=== PATIENT | male | born 1975 | race Caucasian/White ===

== ENCOUNTER 2017-01-11 19:16 | Emergency (ER) | payer OTHER ==
[2017-01-11 21:36] VITALS: BP 124/87
[2017-01-11 21:36] LABS: Urine Bilirubin Negative (Negative); Urine Glucose Negative (Negative); Urine Nitrite Negative (Negative)
--- NOTE | 2017-01-12 07:32 | RAD ---
INDICATION: Left scrotal discomfort no definite hernia felt. COMPARISON: There are no prior studies available for comparison. TECHNIQUE: Multiple real-time images of the testicles were obtained including color Doppler images and Doppler tracings. FINDINGS: The testicles are normal in size, shape and echogenicity. The right testicle measured 4.7 x 2.0 x 3.1 cm and the left testicle measured 4.8 x 1.9 x 2.9 cm. No intratesticular mass is seen. There is symmetric vascular flow within both testicles. There are small bilateral epididymal cyst measuring 6 x 3 x 4 mm in the right epididymis and 2 cysts measuring 7 x 7 x 7 mm in the left epididymis. No hydrocele is seen. There is no evidence for varicocele. The inguinal area was scanned with and without Valsalva maneuver without evidence for hernia. IMPRESSION: SMALL EPIDIDYMAL CYSTS, OTHERWISE UNREMARKABLE STUDY.
--- NOTE | 2017-01-13 03:13 | ED ---
Rafael Valdes Gabriel, scribed for Kelvin Garcia MD on 01/11/17 at 2059 . Abdominal Pain/Male - HPI Summary HPI Summary: This patient is a 41 year old M presenting to [facility] with a chief complaint of ABD pain since 3 weeks prior. That has been getting worse the past 3 days. The patient rates the pain 4/10 in severity. He states the pain is radiating into his mid and lower back. Symptoms aggravated by movement. Patient reports fatigue , nausea, fogginess, diarrhea, and testicular pain. Patient denies fever, penal discharge, and blood in urine. Patient also denies any new sexual partners. - History of Current Complaint Chief Complaint: EDGeneral Stated Complaint: ABD/GROIN PAIN Time Seen by Provider: 01/11/17 20:54 Hx Obtained From: Patient Onset/Duration: Gradual Onset, Lasting Weeks - 3, Still Present Timing: Constant Pain Intensity: 4 Pain Scale Used: 0-10 Numeric Radiates: Yes Radiates to: Back Aggravating Factor(s): Movement Associated Signs And Symptoms: Positive: Negative - fever, penal discharge, and blood in urine, Other - fatigue, nausea, fogginess, diarrhea, and testicular pain PMH/Surg Hx/FS Hx/Imm Hx Previously Healthy: No Endocrine/Hematology History: Denies: Hx Diabetes Cardiovascular History: Denies: Hx Myocardial Infarction EENT History: Denies: Hx Deafness - Immunization History Date of Tetanus Vaccine: unk Date of Influenza Vaccine: none Infectious Disease History: No Infectious Disease History: Denies: Traveled Outside the [place] in Last 30 Days - Family History Known Family History: Positive: Hypertension, Diabetes - Social History Occupation: Employed Full-time - self employed Alcohol Use: Weekly Hx Substance Use: No Substance Use Type: Reports: None Hx Tobacco Use: No Smoking Status (MU): Former Smoker Review of Systems Constitutional: Other - Foggy Positive: Fatigue. Negative: Fever Positive: Abdominal Pain, Diarrhea, Nausea Genitourinary: Negative - penal discharge Positive: other - testicula rpain . Negative: hematuria All Other Systems Reviewed And Are Negative: Yes Physical Exam - Summary Physical Exam Summary: Skin: warm, dry, reflects adequate perfusion Head/face: normal Eyes: EOMI, ROBINSON ENT: normal, throat is clear Neck: supple, non-tender Respiratory: CTA, breath sounds present Pelvic: Mild inguinal tenderness without hernia, Normal cremaster reflex and normal lie Cardiovascular: RRR, pulses symmetrical, no murmur Abdomen: non-tender, soft, RUQ negative, No enlarged adenopathy Bowel: present Musculoskeletal: normal, strength/ROM intact Neuro: normal, sensory motor intact, A&Ox3 Triage Information Reviewed: Yes Vital Signs On Initial Exam: Initial Vitals Temp Pulse Resp BP Pulse Ox 97.7 F 63 18 161/86 99 01/11/17 19:21 01/11/17 19:21 01/11/17 19:21 01/11/17 19:21 01/11/17 19:21 Vital Signs Reviewed: Yes - Nikhil Coma Scale Coma Scale Total: 15 Diagnostics - Vital Signs Vital Signs Temp Pulse Resp BP Pulse Ox 01/11/17 19:21 97.7 F 63 18 161/86 99 - Laboratory Lab Results: Lab Results 01/11/17 01/11/17 Range/Units 21:20 21:20 Urine Color Yellow Urine Appearance Cloudy Urine pH 7.0 (5-9) Ur Specific [place] 1.021 (1.010-1.030) Urine Protein Negative (Negative) Urine Ketones Negative (Negative) Urine Blood Negative (Negative) Urine Nitrate Negative (Negative) Urine Bilirubin Negative (Negative) Urine Urobilinogen Negative (Negative) Ur Leukocyte Esterase Negative (Negative) Urine Glucose Negative (Negative) C.trachomatis (Amp Det) Negative (Negative) N.gonorrhoeae (Amp Det) Negative (Negative) Lab Statement: Any lab studies that have been ordered have been reviewed, and results considered in the medical decision making process. - Additional Comments Diagnostic Additional Comments: US scrotum, per radiologist, no evidence for acute disease ED physician has reviewed this radiology report and agrees. Abdominal Pain Fem Course/Dx - Course Course Of Treatment: pt with inguinal pain and no palp hernia. Nl US scrotum. Urine neg. No tenderness in abd. Symmetric nodes. Tx symptomatically. - Diagnoses Provider Diagnoses: Left inguinal pain Discharge - Discharge Plan Condition: Good Disposition: HOME Prescriptions: Ciprofloxacin TAB* [Cipro 500 MG TAB*] 500 mg PO BID #14 tab Naproxen TAB* [Naprosyn 250 mg TAB*] 250 mg PO BID PRN #10 tab PRN Reason: Pain Patient Education Materials: Groin Pain (ED) Referrals: Seth Navarro MD [Primary Care Provider] - Additional Instructions: RETURN TO THE EMERGENCY DEPARTMENT FOR CHANGING OR WORSENING SYMPTOMS The documentation as recorded by the Rafael garrett Gabriel accurately reflects the service I personally performed and the decisions made by me, Kelvin Garcia MD.
== END 2017-01-11 23:53 | disposition home or self-care (01) ==
LOC: ED 19:16
DX: R10.30 Lower abdominal pain, unspecified (principal); R10.9 Unspecified abdominal pain; N50.819 Testicular pain, unspecified; R53.83 Other fatigue; Z87.891 Personal history of nicotine dependence
CPT/HCPCS: 76870; 81003; 87491; 87591; 99282

== ENCOUNTER 2017-12-01 19:58 | Emergency (ER) | payer OTHER ==
[2017-12-01] MEDS ORDERED: NS 0.9% 1000 ML* 1,000 ML IV ONE (20:50)
[2017-12-01 21:02] LABS: ABS Basophils 0.1 10^3/ul (0-0.2); ABS Eosinophils 0.3 10^3/ul (0-0.6); ABS Lymphocytes 1.8 10^3/ul (1.0-4.8); ABS Monocytes 0.8 10^3/ul (0-0.8); ABS Neutrophils 3.4 10^3/ul (1.5-7.7); ABS Nucleated RBC 0 10^3/ul; Eosinophil % 4.2 % (0-6); Hematocrit 40 % (42-52); Hemoglobin 13.4 g/dl (14.0-18.0); Lymphocyte % 28.2 % (25-47); Mean Corpuscular HGB Conc 34 g/dl (31-36); Mean Corpuscular Hemoglobin 29 pg (27-31); Mean Corpuscular Volume 87 fL (80-94); Mean Platelet Volume 10.1 um3 (7.4-10.4); Nucleated Red Blood Cells % 0; Platelet Count 204 10^3/ul (150-450); Red Blood Count 4.56 10^6/ul (4.00-5.40); Red Cell Distribution Width 13 % (10.5-15); White Blood Count 6.3 10^3/ul (3.5-10.8)
[2017-12-01 21:18] LABS: EGFR Non-African American 99.8 (>60)
[2017-12-01 21:43] LABS: Urine Appearance Clear; Urine Blood Negative (Negative); Urine Color Straw; Urine Ketones Negative (Negative); Urine Protein Negative (Negative); Urine Specific Gravity 1.009 (1.010-1.030); Urine Urobilinogen Negative (Negative)
--- NOTE | 2017-12-01 21:59 | ED ---
Abdominal Pain/Male - HPI Summary HPI Summary: Patient is a 42 y/o M w/ c/o rash to groin area, burning/pain at LLQ. He states that eight days ago, patient was lifting weights and dropped them by accident. Two days later, patient began to experience a burning sensation at LLQ and also noted bumps and burning at groin area. Patient also notes bumps to LUE and back. He denies chills, fever, nausea, vomiting. Patient reports slight discomfort with urination. Penile discharge, scrotal pain is denied. PMHx, PSHx , home medications are denied. He notes that present Sx are different from previous bouts of poison flakita he has had. On triage, pain is rated 4/10, nothing is noted to aggravate/alleviate Sx. it is noted that patient took Motrin this AM. Home medications and allergies are reviewed. - History of Current Complaint Chief Complaint: EDAbdPain Stated Complaint: BULDGE IN GROIN AREA Time Seen by Provider: 12/01/17 20:20 Hx Obtained From: Patient Onset/Duration: Lasting Days - onsetting four days ago, Still Present Timing: Constant, Lasting Days - onset four days ago Severity Currently: Moderate - 4/10 Pain Intensity: 4 Pain Scale Used: 0-10 Numeric - 4/10 Location: Discrete At: LLQ, Groin Character: Burning Aggravating Factor(s): Nothing Alleviating Factor(s): Nothing Associated Signs And Symptoms: Positive: Urinary Symptoms - slight discomfort with urination, Other - groin burning, bumps at LUE and back, denies chills. Negative: Fever, Nausea, Vomiting - Allergies/Home Medications Allergies/Adverse Reactions: Allergies Allergy/AdvReac Type Severity Reaction Status Date / Time No Known Allergies Allergy Verified 02/21/17 09:35 PMH/Surg Hx/FS Hx/Imm Hx Endocrine/Hematology History: Denies: Hx Diabetes Cardiovascular History: Denies: Hx Myocardial Infarction History: Denies: Hx Renal Disease Sensory History: Denies: Hx Deafness - Surgical History Surgery Procedure, Year, and Place: none - Immunization History Date of Tetanus Vaccine: unk Date of Influenza Vaccine: none Infectious Disease History: No Infectious Disease History: Denies: Traveled Outside the [place] in Last 30 Days - Family History Known Family History: Positive: Hypertension, Diabetes - Social History Alcohol Use: Weekly Hx Substance Use: No Substance Use Type: Reports: None Hx Tobacco Use: No Smoking Status (MU): Former Smoker Review of Systems Negative: Fever, Chills Positive: Abdominal Pain - LLQ. Negative: Vomiting, Nausea Positive: dysuria - discomfort with urination . Negative: discharge, pain - scrotal Positive: Other - burning at LLQ and groin, bumps at LUE and back All Other Systems Reviewed And Are Negative: Yes Physical Exam - Summary Physical Exam Summary: GENERAL: Patient is a well-developed and nourished male who is lying comfortable in the stretcher. Patient is not in any acute respiratory distress. HEAD AND FACE: Normocephalic EYES: PERRLA, EOMI x 2. EARS: Hearing grossly intact. MOUTH: Oropharynx within normal limits. NECK: Supple, trachea is midline, no adenopathy, no JVD, no carotid bruit. CHEST: Symmetric, no tenderness at palpation LUNGS: Clear to auscultation bilaterally. No wheezing or crackles. CVS: Regular rate and rhythm, S1 and S2 present, no murmurs or gallops appreciated. ABDOMEN: Soft, non-tender. Bowel sounds are normal. No abdominal abnormal pulsations. EXTREMITIES: Full ROM in all major joints, no edema, no cyanosis or clubbing. NEURO: Alert and oriented x 3. No acute neurological deficits. Speech is normal and follows commands. SKIN: Dry and warm; lymph nodes palpable fluid in left inguinal area that is palpable, and tenderness. Vesicular lesions in the area as well. Some bumps on LUE and back. Triage Information Reviewed: Yes Vital Signs On Initial Exam: Initial Vitals Temp Pulse Resp BP Pulse Ox 99.1 F 75 18 135/104 100 12/01/17 20:00 12/01/17 20:00 12/01/17 20:00 12/01/17 20:00 12/01/17 20:00 Vital Signs Reviewed: Yes Diagnostics - Vital Signs Vital Signs Temp Pulse Resp BP Pulse Ox 12/01/17 20:00 99.1 F 75 18 135/104 100 - Laboratory Lab Results: Lab Results 12/01/17 12/01/17 12/01/17 Range/Units 20:55 20:55 20:55 WBC 6.3 (3.5-10.8) 10^3/ul RBC 4.56 (4.00-5.40) 10^6/ul Hgb 13.4 L (14.0-18.0) g/dl Hct 40 L (42-52) % MCV 87 (80-94) fL MCH 29 (27-31) pg MCHC 34 (31-36) g/dl RDW 13 (10.5-15) % Plt Count 204 (150-450) 10^3/ul MPV 10.1 (7.4-10.4) um3 Neut % (Auto) 54.3 (38-83) % Lymph % (Auto) 28.2 (25-47) % [place] % (Auto) 11.9 H (0-7) % Eos % (Auto) 4.2 (0-6) % Baso % (Auto) 1.4 (0-2) % Absolute Neuts (auto) 3.4 (1.5-7.7) 10^3/ul Absolute Lymphs (auto) 1.8 (1.0-4.8) 10^3/ul Absolute Monos (auto) 0.8 (0-0.8) 10^3/ul Absolute Eos (auto) 0.3 (0-0.6) 10^3/ul Absolute Basos (auto) 0.1 (0-0.2) 10^3/ul Absolute Nucleated RBC 0 10^3/ul Nucleated RBC % 0 APTT (26.0-36.3) seconds Sodium 138 (135-145) mmol/L Potassium 4.2 (3.5-5.0) mmol/L Chloride 105 (101-111) mmol/L Carbon Dioxide 27 (22-32) mmol/L Anion Gap 6 (2-11) mmol/L BUN 18 (6-24) mg/dL Creatinine 0.85 (0.67-1.17) mg/dL Est GFR ( Amer) 120.8 (>60) Est GFR (Non-Af Amer) 99.8 (>60) BUN/Creatinine Ratio 21.2 H (8-20) Glucose 93 (70-100) mg/dL Lactic Acid 0.7 (0.5-2.0) mmol/L Calcium 9.3 (8.6-10.3) mg/dL Magnesium 1.9 (1.9-2.7) mg/dL Total Bilirubin 0.30 (0.2-1.0) mg/dL AST 19 (13-39) U/L ALT 24 (7-52) U/L Alkaline Phosphatase 76 (34-104) U/L C-Reactive Protein 4.07 (<8.01) mg/L Total Protein 6.8 (6.4-8.9) g/dL Albumin 4.3 (3.2-5.2) g/dL Globulin 2.5 (2-4) g/dL Albumin/Globulin Ratio 1.7 (1-3) Lipase 28 (11.0-82.0) U/L Urine Color Urine Appearance Urine pH (5-9) Ur Specific [place] (1.010-1.030) Urine Protein (Negative) Urine Ketones (Negative) Urine Blood (Negative) Urine Nitrate (Negative) Urine Bilirubin (Negative) Urine Urobilinogen (Negative) Ur Leukocyte Esterase (Negative) Urine Glucose (Negative) 12/01/17 12/01/17 Range/Units 20:55 21:26 WBC (3.5-10.8) 10^3/ul RBC (4.00-5.40) 10^6/ul Hgb (14.0-18.0) g/dl Hct (42-52) % MCV (80-94) fL MCH (27-31) pg MCHC (31-36) g/dl RDW (10.5-15) % Plt Count (150-450) 10^3/ul MPV (7.4-10.4) um3 Neut % (Auto) (38-83) % Lymph % (Auto) (25-47) % Bea[place] % (Auto) (0-7) % Eos % (Auto) (0-6) % Baso % (Auto) (0-2) % Absolute Neuts (auto) (1.5-7.7) 10^3/ul Absolute Lymphs (auto) (1.0-4.8) 10^3/ul Absolute Monos (auto) (0-0.8) 10^3/ul Absolute Eos (auto) (0-0.6) 10^3/ul Absolute Basos (auto) (0-0.2) 10^3/ul Absolute Nucleated RBC 10^3/ul Nucleated RBC % APTT 36.8 H (26.0-36.3) seconds Sodium (135-145) mmol/L Potassium (3.5-5.0) mmol/L Chloride (101-111) mmol/L Carbon Dioxide (22-32) mmol/L Anion Gap (2-11) mmol/L BUN (6-24) mg/dL Creatinine (0.67-1.17) mg/dL Est GFR ( Amer) (>60) Est GFR (Non-Af Amer) (>60) BUN/Creatinine Ratio (8-20) Glucose (70-100) mg/dL Lactic Acid (0.5-2.0) mmol/L Calcium (8.6-10.3) mg/dL Magnesium (1.9-2.7) mg/dL Total Bilirubin (0.2-1.0) mg/dL AST (13-39) U/L ALT (7-52) U/L Alkaline Phosphatase (34-104) U/L C-Reactive Protein (<8.01) mg/L Total Protein (6.4-8.9) g/dL Albumin (3.2-5.2) g/dL Globulin (2-4) g/dL Albumin/Globulin Ratio (1-3) Lipase (11.0-82.0) U/L Urine Color Straw Urine Appearance Clear Urine pH 7.0 (5-9) Ur Specific [place] 1.009 L (1.010-1.030) Urine Protein Negative (Negative) Urine Ketones Negative (Negative) Urine Blood Negative (Negative) Urine Nitrate Negative (Negative) Urine Bilirubin Negative (Negative) Urine Urobilinogen Negative (Negative) Ur Leukocyte Esterase Negative (Negative) Urine Glucose Negative (Negative) Result Diagrams: 12/01/17 20:55 12/01/17 20:55 Lab Statement: Any lab studies that have been ordered have been reviewed, and results considered in the medical decision making process. Abdominal Pain Fem Course/Dx - Course Course Of Treatment: Patient is a 42 y/o M w/ c/o rash to groin area, burning/ pain at LLQ. He states that eight days ago, patient was lifting weights and dropped them by accident. Two days later, patient began to experience a burning sensation at LLQ and also noted bumps and burning at groin area. He denies chills, fever, nausea, vomiting. Patient reports slight discomfort with urination. Penile discharge, scrotal pain is denied. PMHx, PSHx, home medications are denied. He notes that present Sx are different from previous bouts of poison flakita he has had. Physical exam showed lymph nodes palpable fluid in left inguinal area that is palpable, and tenderness. Vesicular lesions in the area as well. Some bumps on LUE and back. During ED course, patient received fluids. UA negative, lipase 28, lactic acid 0.7, glucose 93, WBC 6.3. Patient was signed out to Dr. Flores pending patient receiving CT. Dx of LLQ pain. - Diagnoses Provider Diagnoses: LLQ pain Discharge - Sign-Out/Discharge Documenting (check all that apply): Sign-Out Patient Signing out patient TO: Marcel Flores Receiving patient FROM: Mario Dudley - Discharge Plan Condition: Good Disposition: HOME Prescriptions: Famciclovir(NF) [Famvir(NF)] 500 mg PO TID #21 tab Patient Education Materials: Harry (ED) Referrals: Seth Navarro MD [Primary Care Provider] - - Billing Disposition and Condition Condition: GOOD Disposition: Home - Attestation Statements Document Initiated by Scribe: Yes Documenting Scribe: Vazquez Aguilar Provider For Whom Scribe is Documenting (Include Credential): Mario Dudley MD Scribe Attestation: Vazquez Valdes , scribed for Mario Dudley MD on 12/03/17 at 0323. Scribe Documentation Reviewed: Yes Provider Attestation: The documentation as recorded by the Vazquez garrett accurately reflects the service I personally performed and the decisions made by me, Mario Dudley MD
[2017-12-01] MEDS ORDERED: Iohexol 300* (CONTRAST) 10 ML SDV IV ONE (23:36)
--- NOTE | 2017-12-02 00:02 | RAD ---
EXAM: CT Abdomen and Pelvis With Intravenous Contrast EXAM DATE/TIME: 12/01/2017 11:25 PM CLINICAL HISTORY: 42 years old, male; Pain; Abdominal pain; Other: Llq pain and groin; Additional info: Llq pain and swelling TECHNIQUE: Axial computed tomography images of the abdomen and pelvis with intravenous contrast. All CT scans at this facility use at least one of these dose optimization techniques: automated exposure control; mA and/or kV adjustment per patient size (includes targeted exams where dose is matched to clinical indication); or iterative reconstruction. Coronal and sagittal reformatted images were created and reviewed. CONTRAST: 97 ml of OMNIPAQUE 300 administered intravenously. COMPARISON: A/P W CT ABD/PEL W 02/21/2017 10:38 AM FINDINGS: Lower thorax: No acute findings. ABDOMEN: Liver: Normal. No mass. Gallbladder and bile ducts: Normal. No calcified stones. No ductal dilation. Pancreas: Normal. No ductal dilation. Spleen: Normal. No splenomegaly. Adrenals: Normal. No mass. Kidneys and ureters: Normal. No hydronephrosis. Stomach and bowel: Mild stool throughout the colon. Appendix: A normal appendix is seen. PELVIS: Bladder: Unremarkable as visualized. Reproductive: Unremarkable as visualized. ABDOMEN and PELVIS: Intraperitoneal space: Normal. No free air. No significant fluid collection. Bones/joints: No acute fracture. No dislocation. Soft tissues: Unremarkable. Vasculature: Normal. No abdominal aortic aneurysm. Lymph nodes: Normal. No enlarged lymph nodes. IMPRESSION: Negative CT abdomen/pelvis without change from 02/21/2017. No renal or ureteral calculi are evident and there is no evidence of obstructive uropathy. To contact [facility] with a general question: [facility] - [phone] For direct physician to physician contact: Physician Hotline - [phone] [facility] ([facility] Facility ID #[id number])
--- NOTE | 2017-12-02 00:23 | ED ---
Course/Dx - Course Course Of Treatment: Patient is a 42 y/o M w/ c/o rash to groin area, burning/ pain at LLQ. He states that eight days ago, patient was lifting weights and dropped them by accident. Two days later, patient began to experience a burning sensation at LLQ and also noted bumps and burning at groin area. He denies chills, fever, nausea, vomiting. Patient reports slight discomfort with urination. Penile discharge, scrotal pain is denied. PMHx, PSHx, home medications are denied. He notes that present Sx are different from previous bouts of poison flakita he has had. Physical exam showed lymph nodes palpable fluid in left inguinal area that is palpable, and tenderness. Vesicular lesions in the area as well. Some bumps on LUE and back. During ED course, patient received fluids. UA negative, lipase 28, lactic acid 0.7, glucose 93, WBC 6.3. Patient was signed out to Dr. Flores pending patient receiving CT. Dx of LLQ pain. - Diagnoses Provider Diagnoses: LLQ pain Discharge - Sign-Out/Discharge Documenting (check all that apply): Patient Departure - Discharge Plan Condition: Good Disposition: HOME Prescriptions: Famciclovir(NF) [Famvir(NF)] 500 mg PO TID #21 tab Patient Education Materials: Harry (ED) Referrals: Seth Navarro MD [Primary Care Provider] - - Billing Disposition and Condition Condition: GOOD Disposition: Home
[2017-12-02] MEDS ORDERED: Acyclovir* 400 MG TAB PO ONE (00:25)
[2017-12-02] MEDS ORDERED: Acyclovir* 200 MG CAP PO ONE (01:00)
[2017-12-02 01:04] VITALS: BP 121/74
== END 2017-12-02 01:04 | disposition home or self-care (01) ==
LOC: ED 19:58
DX: R10.32 Left lower quadrant pain (principal); Z87.891 Personal history of nicotine dependence
CPT/HCPCS: 36415; 74177; 80053; 81003; 83605; 83690; 83735; 85025; 85730; 86140; 87529; 96361; 96374; 99283; A9270-GY; Q9967

== ENCOUNTER 2019-03-12 10:28 | Emergency (ER) | payer SELFPAY ==
[2019-03-12 13:22] VITALS: BP 134/89
--- NOTE | 2019-03-12 13:36 | UC ---
Throat Pain/Nasal Nathan HPI - HPI Summary HPI Summary: 43-year-old male comes in with a chief complaint of sinusitis symptoms and ear pain for about 5 weeks. He's had green rhinorrhea and sinus pressure. Have postnasal drip and bilateral ear pain. He's had some clear drainage from both is ears. ears to hurt. Is also been having sores on the inside of his lips. Does have cough and some chest congestion. No history of COPD or asthma. His psoriasis which is chronic is also flaring up. It's primarily on his elbows. - History of Current Complaint Chief Complaint: UCEar Stated Complaint: EAR PAIN BILATERAL Time Seen by Provider: 03/12/19 13:21 Pain Intensity: 4 - Allergies/Home Medications Allergies/Adverse Reactions: Allergies Allergy/AdvReac Type Severity Reaction Status Date / Time No Known Allergies Allergy Verified 03/12/19 11:19 Home Medications: Home Medications Ascorbic Acid TAB* [Vitamin C TAB*] 500 mg PO DAILY 03/12/19 [History Confirmed 03/12/19] Cellulase 1 pow XX 03/12/19 [History] Cyanocobalamin (Vitamin B-12) [Vitamin B-12] 1,000 mcg PO 03/12/19 [History] Magnesium [Magnesium Elemental] 30 mg PO 03/12/19 [History] Ubidecarenone [Coq10] 100 mg PO 03/12/19 [History] PMH/Surg Hx/FS Hx/Imm Hx Previously Healthy: Yes - psoriasis - Surgical History Surgical History: None Surgery Procedure, Year, and Place: none - Family History Known Family History: Positive: Hypertension, Diabetes - Social History Alcohol Use: Occasionally Substance Use Type: None Smoking Status (MU): Former Smoker Review of Systems All Other Systems Reviewed And Are Negative: Yes Constitutional: Positive: Other - SEE HPI Skin: Positive: Other - SEE HPI Eyes: Positive: Negative ENT: Positive: Sore Throat, Ear Ache, Nasal Discharge, Sinus Congestion, Sinus Pain/Tenderness Respiratory: Positive: Cough Cardiovascular: Positive: Negative Gastrointestinal: Positive: Negative Motor: Positive: Negative Neurovascular: Positive: Negative Musculoskeletal: Positive: Negative Neurological: Positive: Negative Psychological: Positive: Negative Is Patient Immunocompromised?: No Physical Exam Triage Information Reviewed: Yes Appearance: Well-Appearing, No Pain Distress, Well-Nourished Vital Signs: Initial Vital Signs Temp 98.9 F 03/12/19 11:13 Pulse 63 03/12/19 11:13 Resp 18 03/12/19 11:13 BP 113/79 03/12/19 11:13 Pulse Ox 100 03/12/19 11:13 Vital Signs Reviewed: Yes Eye Exam: Normal Eyes: Positive: Conjunctiva Clear ENT: Positive: Pharyngeal erythema, Nasal congestion, Nasal drainage, TM red - Left, Other - Both ear canals are erythematous with clear fluid. Neck: Positive: Supple Respiratory: Positive: Lungs clear, Normal breath sounds, No respiratory distress Cardiovascular: Positive: RRR Musculoskeletal: Positive: Strength Intact, ROM Intact Neurological: Positive: Alert, Muscle Tone Normal Psychological: Positive: Age Appropriate Behavior Skin: Positive: Other - Psoriatic rash on both elbows Throat Pain/Nasal Course/Dx - Differential Dx/Diagnosis Provider Diagnosis: Sinusitis, Otitis externa, Psoriasis, Aphthous stomatitis Discharge ED - Sign-Out/Discharge Documenting (check all that apply): Patient Departure All imaging exams completed and their final reports reviewed: No Studies - Discharge Plan Condition: Stable Disposition: HOME Prescriptions: Amoxicillin/Clavulanate TAB* [Augmentin TAB 875*] 875 mg PO BID #20 tab Fluticasone NASAL SPRAY 50MCG* [Flonase NASAL SPRAY 50MCG*] 2 spray BOTH NARES DAILY #1 btl Ofloxacin 0.3% (Ear Drop)* [Floxin 0.3% OTIC.RILEY (Ear Drop)] 5 drop BOTH EARS BID #1 btl Triamcinolone 0.5% CREAM(NF) [Triamcinolone 0.5% CREAM*] 1 applic TOPICAL TID # 1 tube Patient Education Materials: Sinusitis (ED), Otitis Externa (ED), Canker Sores (ED), Psoriasis (ED) Referrals: [facility] [place] [facility]ICIAN REFERRAL [Outside] Juliann Lizarraga MD [Medical Doctor] - Additional Instructions: FOLLOW UP WITH YOUR DOCTOR IF NOT COMPLETELY IMPROVED. Follow-up with dermatology for your psoriasis. GET REEVALUATED SOONER IF NOT IMPROVED OR WORSE OR ANY QUESTIONS OR CONCERNS. - Billing Disposition and Condition Condition: STABLE Disposition: Home
== END 2019-03-12 14:06 | disposition home or self-care (01) ==
LOC: UCEAST 10:28
DX: J32.9 Chronic sinusitis, unspecified (principal); H60.93 Unspecified otitis externa, bilateral; L40.9 Psoriasis, unspecified; K12.0 Recurrent oral aphthae; Z87.891 Personal history of nicotine dependence
CPT/HCPCS: 99212; G0463